=== PATIENT | female | born 1980 | race Caucasian/White ===

== ENCOUNTER 2020-06-20 07:59 | Outpatient (CLI) | payer OTHER, SELFPAY ==
--- NOTE | 2020-06-20 08:06 | MM_ITS ---
WS: [id number] Exam: [place] [id number] Date/Time of Exam: 06/20/2020 8:12 AM Reason For Exam: SCREENING VIEWS: MLO and CC views both breasts. Baseline study Findings: There was no sign of mass, architectural distortion or suspicious calcification in either breast. He terogeneously dense MM/[place] [id number] Impression: BI-RADS: 2-Benign FOLLOW-UP: 1 Year Follow-up This mammogram was also analyzed by the Computer Aided Detection System R2 Imag e Senior Engineering Team Leader.
== END 2020-06-20 08:00 | disposition home or self-care (01) ==
LOC: RADSHAW 08:02
PROVIDERS: PCP Registered Nurse; Visit Provider Obstetrics & Gynecology
DX: Z12.31 Encounter for screening mammogram for malignant neoplasm of breast (principal)
CPT/HCPCS: 77067

== ENCOUNTER → 2021-05-17 08:19 | Outpatient (BNVA) | payer OTHER, SELFPAY | PROVIDERS: PCP Registered Nurse; Visit Provider Obstetrics & Gynecology | DX: Z01.419 Encounter for gynecological examination (general) (routine) without abnormal findings (principal) | CPT/HCPCS: 87624 ==

== ENCOUNTER 2021-06-25 14:52 | Emergency (ER) | payer OTHER, SELFPAY ==
[2021-06-25 15:02] VITALS: BP 135/87; PULSE 89; RESP 16; TEMP 36.4; O2SAT 99; BMI 29.8
--- NOTE | 2021-06-25 15:05 | ECG_ITS ---
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 Measurements Intervals [place] Rate: 88 P: 48 UT: 143 QRS: 73 QRSD: 95 T: 53 QT: 381 QTc: 462 Interpretive Statements SINUS RHYTHM Compared to ECG 05/08/2018 11:38:25 Sinus tachycardia no longer present Electronically Signed On 06-26-2021 17:39:43 SALES AND LEASING AGENT by Marito Mcneill M.D. [email or web address].Nanoledgebolivar medical centerECOtwin city hospitalInfineta Systems/store/OM/[id number]
[2021-06-25 15:21] VITALS: BP 115/77; PULSE 88; RESP 19; TEMP 36.9; O2SAT 100
--- NOTE | 2021-06-25 15:21 | XR_ITS ---
WS: [id number] PORTABLE CHEST HISTORY: chest pain COMPARISON: 05/08/2018 Lungs are clear and well expanded. No pleural effusion or pneumothorax. Cardiac size: Normal. Mediastinum/Aorta: Normal mediastinum. No osseous abnormality seen. XR/XR chest 1V portable [id number] IMPRESSION: Unremarkable portable chest.
[2021-06-25 16:02] LABS: Basophils # 0.1 10^3/uL (0.0-0.1); Basophils % 1.1 %; Eosinophils # 0.2 10^3/uL (0.0-0.8); Eosinophils % 3.6 %; Hematocrit 36.8 % (37.0-47.0); Hemoglobin 12.3 g/dL (11.5-15.3); Lymphocytes # 1.6 10^3/uL (0.8-4.8); Lymphocytes % 24.4 %; Mean Corpuscular HGB Conc 33.4 g/dL (30.0-36.0); Mean Corpuscular Hemoglobin 30.4 pg (28.0-34.0); Mean Corpuscular Volume 91.1 fl (81-99); Mean Platelet Volume 9.5 fL (7.4-10.4); Monocytes # 0.5 10^3/uL (0.2-0.9); Monocytes % 7.5 %; Neutrophils # 4.08 10^3/uL (1.8-7.7); Neutrophils % 63.2 %; Nucleated Red Blood Cells % 0 %; Platelet Count 296 10^3/cmm (130-400); Red Blood Count 4.04 10^6/uL (4.1-5.3); Red Cell Distribution Width 12.5 % (12.1-15.1); White Blood Count 6.4 10^3/uL (4.0-10.0)
--- NOTE | 2021-06-25 16:03 | W.ED.GENADLT ---
HPI - General Adult General: Chief complaint: Chest Pain Stated complaint: SLIGHT CP/HIGH BP Time Seen by Provider: 06/25/21 15:15 History of Present Illness: HPI narrative: CC: Chest Pain HPI: This is a [40] yo patient hx of SVT s/p ablation 3 years ago presenting to the ED complaining of acute sudden onset intermittent pressure like pain WITHOUT radiation lasting for 2-5 minutes at a time. Patient has had 8 episodes of these chest pressures. Patient reported mild facial numbness without any radiated pain. No associated with shortness of breath, chest pain or dyspnea on exertion. Pain is not tearing in nature and does not radiate to the back. Pain not associated with vomiting or PO intake. Denies any recent sympathomimetic drug use. Patient denies any cough. Denies palpitations, dysphagia, diaphoresis, radiation of pain to bilateral arms, jaw. Denies F/N/V/D. Patient denies any recent immobility, surgery, unilateral leg swelling, or prior PE. Patient denies any orthopnea. Onset: earlier today Duration: ongoing for 4 hrs Location: home Severity: mild/moderate Review of Systems Narrative: Constitutional: No fever, no chills. HEENT: No vision changes, no sore throat. CV: +chest pain, no palpitations. PULM: No cough, No dyspnea. GI: No abdominal pain, no N/V/D. : No dysuria, no frequency, no hematuria. MSKEL: No arthralgias, no edema. SKIN: No new rashes, no lesions. NEURO: No headache, no focal weakness. HEME: No easy bleeding or bruising. PSYCH: No change in mood or affect. [facility] ED PFSH: Medical History Anxiety and depression Seasonal allergies SVT (supraventricular tachycardia) Treated by cardiac ablation - 07/2018 Surgical History History of cardiac radiofrequency ablation (RFA) (07/14/18) S/P LEEP Performed by Dr. Whitfield at [facility] [place], [place] Teller teeth removed (~1999) Family History (Updated 05/17/21 @ 07:55 by Evi Guzman LPN) Father Heart disease Family/Other Ovarian cancer great aunt Heart disease great uncle Grandfather Heart disease Grandmother Hypertension Brother Diabetes type 1 1/2 Denies family history of CAD (coronary artery disease) Clotting disorder Hyperlipidemia Chronic kidney disease (CKD) Bleeding disorder Thyroid disease Stroke Social History (Updated 05/17/21 @ 07:55 by Evi Guzman LPN) Smoking and tobacco status: never smoked Alcohol intake: current Alcohol intake frequency: few times a month Physical Exam Narrative: EXAM NARRATIVE: Head: Atraumatic, normocephalic Eyes: PERRL, EOMI, conjunctiva without injection ENT: Throat without erythema, lesions or exudate, MMM NECK: Supple, trachea midline, no JVD LUNGS: LCTA CV: RRR, S1,S2, no murmurs, rubs, gallops. 2+ peripheral pulses in UEs ABDOMEN: Soft, nontender, nondistended, BS x4, no rigidity, no guarding, no rebound EXTREMITY: Normal ROM, no pitting edema, no calf tenderness to palpation SKIN: No rash or erythema NEURO: Awake and alert. No focal motor deficits. PSYCH: Normal mood and affect. Course Vital Signs: Vital signs: Vital Signs Temperature 98.5 F 06/25/21 15:21 Pulse Rate 79 06/25/21 17:51 Respiratory Rate 20 H 06/25/21 17:51 Blood Pressure 96/72 06/25/21 17:51 Pulse Oximetry 100 06/25/21 17:51 MDM - General Adult MDM Narrative: Medical decision making narrative: [40]yo patient w/ hx of SVT from 3 years prior s/p ablation presenting to the ED with evaluation of new onset of chest pressure since earlier today. HDS, pulse 2+ radially bilaterally, no signs of fluid overload, AAOx3, neuro exam intact. Given History and Exam today I have no suspicion for ACS, Pneumothorax, Pneumonia, Pulmonary Embolus, Tamponade, Aortic Dissection or other emergent problems as a cause for this presentation. Workup: ECG, CXR, CBC, BMP, Troponin x2 Findings: ECG: No overt evidence of STEMI, hyperacute T waves, localizable STD or T wave inversions. No evidence of Brugada?s sign, delta wave, epsilon wave, significantly prolonged QTc, or malignant arrhythmia. No Q waves. Other Labs unremarkable for emergent problems. CXR: Without PTX, PNA, or widened mediastinum Last Stress Test: never Last Heart Catheterization: never HEART Score: 0 PERC: Negative [6:30pm] On reassessment, the patient is HDS, no complaints of persistent chest pain in the ED after evaluation. ECG is non-ischemic. Workup today is unremarkable. Doubt ACS/PE or other emergent causes of chest pain. I performed a shared decision-making with the patient regarding admission versus discharge given the nature of her chest pain. Although his workup is negative today, I explained to him that she may still have a cardiac event. At this time, patient elects to follow up with a bundler outpatient for further evaluation and prefers to be discharged today. I have discussed the risks of leaving the hospital today which include serious risks including acute myocardial infarction and even dxeath which is unlikely but cannot rule out. Patient verbalizes understandings of all the risks and still elect for outpatient stress test. We will arrange for an outpatient stress test for the patient. Rx: Tylenol PRN pain Disposition: Discharge. Strict return precautions discussed with the patient with full understanding. Advised patient to follow up promptly with a primary care provider in 24-48 hrs if the patient has persistent symptoms. Given return instructions for any crushing/tearing chest pain, focal weakness, syncope or any new or concerning issues. Lab Data: Labs: Lab Results 06/25/21 06/25/21 06/25/21 15:50 15:50 15:50 WBC 6.4 10^3/uL 10^3/ uL (4.0-10.0) RBC 4.04 10^6/uL L 10 ^6/uL (4.1-5.3) Hgb 12.3 g/dL g/dL (11.5-15.3) Hct 36.8 % L % (37.0-47.0) MCV 91.1 fl fl (81-99) MCH 30.4 pg pg (28.0-34.0) MCHC 33.4 g/dL g/dL (30.0-36.0) RDW 12.5 % % (12.1-15.1) Plt Count 296 10^3/cmm 10^3 /cmm (130-400) MPV 9.5 fL fL (7.4-10.4) Neut % (Auto) 63.2 % % Lymph % (Auto) 24.4 % % [place] % (Auto) 7.5 % % Eos % (Auto) 3.6 % % Baso % (Auto) 1.1 % % Neut # (Auto) 4.08 10^3/uL 10^3 /uL (1.8-7.7) Lymph # (Auto) 1.6 10^3/uL 10^3/ uL (0.8-4.8) [place] # (Auto) 0.5 10^3/uL 10^3/ uL (0.2-0.9) Eos # (Auto) 0.2 10^3/uL 10^3/ uL (0.0-0.8) Baso # (Auto) 0.1 10^3/uL 10^3/ uL (0.0-0.1) Nucleated RBC % (a uto) 0 % % Nucleated RBCs # 0.0 /100WBC /100W BC Sodium 142 mmol/L mmol/L (136-145) Potassium 3.5 mmol/L mmol/L (3.5-5.1) Chloride 103 mmol/L mmol/L (98-107) Carbon Dioxide 30 mmol/L H mmol/ L (22-29) Anion Gap 12.5 (5-19) BUN 11 mg/dL mg/dL (6-20) Creatinine 0.6 mg/dL mg/dL (0.5-0.9) GFR Calculation 110.2 mL/min mL/m in (90-130) Glucose 103 mg/dL mg/dL (65-115) Calculated Osmolal ity 294 mOsm/kg mOsm/ kg (285-295) Calcium 8.4 mg/dL L mg/dL (8.5-10.5) Troponin T Baselin e 6 ng/L ng/L (0-10) Troponin T 120 Min enterprise Delta Troponin T Ser , Liana i-Qnt 0.50 mIU/mL mIU/m L 06/25/21 17:32 WBC RBC Hgb Hct MCV MCH MCHC RDW Plt Count MPV Neut % (Auto) Lymph % (Auto) [place] % (Auto) Eos % (Auto) Baso % (Auto) Neut # (Auto) Lymph # (Auto) [place] # (Auto) Eos # (Auto) Baso # (Auto) Nucleated RBC % (a uto) Nucleated RBCs # Sodium Potassium Chloride Carbon Dioxide Anion Gap BUN Creatinine GFR Calculation Glucose Calculated Osmolal ity Calcium Troponin T Baselin e Troponin T 120 Min enterprise 6.00 ng/L ng/L (0-10) Delta Troponin T 0 ABS# ABS# (0-10) Ser , Liana i-Qnt Imaging Data^: Other Imaging: Radiologist's impression: [id number] [place], [place] [address]ODku ReportSigned Patient: Imani Steve #: [id number]: 1980Acct#:[id number]/Sex: 40 / FADM Date: 06/25/21Loc: ERRoom/Bed:Attending Dr: Ordering Provider/Ordering MD: Jacklyn Real MD Date of Service: 06/25/21 Procedure(s): XR chest 1V portable [id number] Accession Number(s): [id number] Report Number: [id number] WS: [id number] PORTABLE CHEST HISTORY: chest pain COMPARISON: 05/08/2018 Lungs are clear and well expanded. No pleural effusion or pneumothorax. Cardiac size: Normal. Mediastinum/Aorta: Normal mediastinum. No osseous abnormality seen. XR/XR chest 1V portable [id number] IMPRESSION: Unremarkable portable chest. Dictated By:Sugey Branham DOSigned By:Sugey Branham DOSigned Date/Time:06/25/21 1549DD/ 1543 Discharge Plan Discharge Patient Disposition: Home Clinical Impression: Chest pain Condition: Stable Prescriptions: New acetaminophen 500 mg tablet 500 mg PO Q6H PRN (Reason: pain) 5 Days Qty: 20 RF: 0 No Action escitalopram oxalate [Lexapro] 20 mg tablet 30 mg PO DAILY Qty: 45 RF: 12 Discharge Orders: Discharge ED (Routine); Ordered 06/25/21 Ordered By: Jacklyn Real Referrals: Victoriano Alba FNP [Primary Care Provider] - Discharge Diet: Advance as tolerated Discharge Activity: Resume usual activity Patient Instructions: Chest Pain (ED) Activity Restrictions/Additional Instructions: Come back to the emergency room if your chest pain worsens, have any fever or chills, worsening shortness of breath, worsening exertional lightheadedness, or any new or concerning complaints. We have arranged you for an outpatient stress test for your heart. Please await to be contacted for the stress test. Coding Level of Care Code ED Inspector Glass Or Mirror for Marylu Anne
[2021-06-25 16:13] VITALS: BP 90/62; PULSE 82; RESP 20; O2SAT 98
[2021-06-25 16:33] LABS: Troponin(5th) Baseline 6 ng/L (0-10)
[2021-06-25 16:43] LABS: Anion Gap 12.5 (5-19); Blood Urea Nitrogen 11 mg/dL (6-20); Calcium 8.4 mg/dL (8.5-10.5); Carbon Dioxide 30 mmol/L (22-29); Chloride 103 mmol/L (98-107); Glomerular Filtration Rate 110.2 mL/min (90-130); Glucose 103 mg/dL (65-115); Osmolality Calculated 294 mOsm/kg (285-295); Potassium 3.5 mmol/L (3.5-5.1); Sodium 142 mmol/L (136-145)
--- NOTE | 2021-06-25 17:21 | ECG_ITS ---
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 Measurements Intervals [place] Rate: 78 P: 62 NM: 175 QRS: 69 QRSD: 97 T: 48 QT: 399 QTc: 456 Interpretive Statements SINUS RHYTHM Compared to ECG 06/25/2021 15:13:31 No significant changes Electronically Signed On 06-26-2021 17:44:46 BANK OFFICER by Marito Mcneill M.D. [email or web address].Lectoratiperry county general hospitalLudic Labswood county hospital.[employer]/store/OM/[id number]
[2021-06-25 17:51] VITALS: BP 96/72; PULSE 79; RESP 20; O2SAT 100
[2021-06-25 18:07] LABS: Troponin 5 2HR Delta 0 ABS# (0-10)
[2021-06-25 18:26] VITALS: BP 97/68; PULSE 76; RESP 15; O2SAT 99
--- NOTE | 2021-06-26 12:01 | DCPLANNER ---
channel business manager had message to schedule an outpatient stress test for patient. channel business manager faxed signed order to centralized scheduling, who will call patient with appointment information.
--- NOTE | 2021-07-15 07:57 | DCPLANNER ---
Patient had an outpatient stress test scheduled - patient did attend.
== END 2021-06-25 18:28 | disposition home or self-care (01) ==
PROVIDERS: Emergency Provider Emergency Medicine; PCP Registered Nurse
DX: R07.9 Chest pain, unspecified (principal)
CPT/HCPCS: 71045; 80048; 84484; 84702; 85025; 93005; 99284

== ENCOUNTER 2021-07-15 07:19 | Outpatient (CLI) | payer OTHER, SELFPAY ==
[2021-07-15 07:38] VITALS: BMI 29.0
--- NOTE | 2021-07-15 07:38 | ECG_ITS ---
[facility] Test Date: 2021-07-15 Pat Name: Imani Steve Department: Room: Gender: Female Independent Freight Agent: Tamara Alejandra : 1980 Requested By: Jacklyn Real Order Number: [id number] Miguel Ángel MD: LUANN GALICIA Interpretive Statements NAME OF STUDY: LEXISCAN SESTAMIBI STRESS TEST INDICATION: Chest Pain, SEND RESULTS TO NELLIE ALVARENGA NOTE: Please note that this is the electrocardiogram portion of the Lexiscan/Sestamibi stress test. The perfusion scan will be documented separately. DATA: Baseline heart rate was 78 beats per minute. Baseline blood pressure was 89/58 millimeters of mercury. Target heart rate was 179. Maximum heart rate achieved was 115. which was 64 % of the predicted target heart rate. Maximum blood pressure was 110/62 millimeters of mercury. The reason for ending the test was completion of the protocol. The patient did not experience any symptoms. ELECTROCARDIOGRAM: BASELINE: Sinus rhythm. Normal axis. Otherwise, no ST-T changes suggestive of ischemia noted. No arrhythmia noted. EXERCISE: After Lexiscan injection, no ST-T changes suggestive of ischemic noted. No arrhythmia noted. CONCLUSION: Please note due to baseline abnormality of the EKG specificity and sensitivity of the EKG portion of LexiScan MIBI stress test will be low 1. EKG not suggestive of ischemia 2. Lexiscan injection unremarkable. 3. Perfusion scan will be documented separately. Electronically Signed On 07-23-2021 22:01:22 DUMPER BAILER OPERATOR by LUANN GALICIA [email or web address]/store/[id number]
--- NOTE | 2021-07-15 07:39 | NMCV_ITS ---
NM phil perf SPECT r/s* [id number] Imani Steve Age: 40 Gender: F : 1980 Exam Date: 07/15/2021 07:39 Ordering Phys: Jacklyn Real MD Technologist: TERESA Carr Exam Location: [facility] Indications: Chest pain STRESS TEST Please [facility] for [facility] IMAGE PROTOCOL Rest/Stress 1 Lexiscan Day Radiopharmaceutical Dose (mCi) Administration Site Administered by Rest: Tc-99m 10.8 IV TERESA Carr Sestamibi Stress:Tc-99m 32.4 IV TERESA Carr Sestamibi Rest: 15-Jul-2021 60 Discovery 630 Stress: 15-Jul-2021 45 Discovery 630 0.4mg Lexiscan. Images obtained in supine and prone position. SPECT RESULTS Technical Quality: Excellent Raw Data Analysis: Normal Image Corrections: No attenuation or motion correction applied Summed Stress Score: 0 Summed Rest Score: 0 Summed Difference Score: 0 PERFUSION FINDINGS SPECT images demonstrate homogeneous tracer distribution throughout the myocardium. FUNCTIONAL RESULTS (calculated via Gated SPECT) Stress Image LV EF (%): 60 Stress EDV (mL):73 TID: 1.16 Stress ESV (mL):29 Rest Image LV EF (%): 60 FUNCTIONAL FINDINGS: There is normal left ventricular systolic function. IMPRESSIONS Myocardial perfusion imaging is normal. TID ratio is elevated which could be secondary to left ventricular hypertrophy/subendocardial ischemia EKG segment will be documented separately. Lee Travis MD (Electronically Signed) Final Date: 15 July 2021 19:42 S
[2021-07-15] MEDS: regadenoson 0.4 Mg/5 ml Syringe IVP (09:14)
[2021-07-15 09:39] VITALS: BP 94/56; PULSE 96
== END 2021-07-15 07:20 | disposition home or self-care (01) ==
LOC: CDL 07:21
PROVIDERS: PCP Registered Nurse; Visit Provider Emergency Medicine
DX: R07.9 Chest pain, unspecified (principal); R06.02 Shortness of breath
CPT/HCPCS: 78452; 93017; A9500; J2785

== ENCOUNTER 2021-08-29 13:30 | Outpatient (CLI) | payer OTHER, SELFPAY ==
--- NOTE | 2021-08-29 13:39 | MM_ITS ---
WS: [id number] BILATERAL DIGITAL SCREENING MAMMOGRAPHY WITH CAD CLINICAL INFORMATION: SCREENING HISTORY: Screening mammogram. No current complaints. COMPARISON: June 20, 2020 TECHNIQUE: Bilateral CC and MLO views. FINDINGS: The breasts are composed of heterogeneous fibroglandular density tissue, which can limit the detectio n of small underlying mass lesions. Dense ovoid asymmetry upper outer left breast. Recommend spot com pression views and ultrasound for further evaluation. Right breast is unremarkable and unchanged. MM/[place] [id number] IMPRESSION: BI-RADS: 0-Incomplete: Need additional imaging evaluation FOLLOW UP: Need Additional Imaging RECOMMEND LEFT BREAST DIAGNOSTIC MAMMOGRAPHY AND ULTRASOUND.
== END 2021-08-29 13:31 | disposition home or self-care (01) ==
LOC: RADSHAW 13:36
PROVIDERS: PCP Registered Nurse; Visit Provider Obstetrics & Gynecology
DX: Z12.31 Encounter for screening mammogram for malignant neoplasm of breast (principal)
CPT/HCPCS: 77067

== ENCOUNTER 2021-09-02 14:45 | Outpatient (CLI) | payer OTHER, SELFPAY ==
--- NOTE | 2021-09-02 14:56 | US_ITS ---
WS: [email or web address] LEFT DIGITAL MAMMOGRAPHY WITH CAD CLINICAL INFORMATION: R92.8 - Other abnormal and inconclusive findings on diagn... COMPARISON: August 29, 2021 TECHNIQUE: 3 views of the left breast were obtained. FINDINGS: Scattered fibroglandular densities of the left breast. Previously described lesion upper outer quadra nt partially compresses out on the spot compression views but remains faintly visible. Ultrasound is pending. ULTRASOUND BREAST LEFT TECHNIQUE: Ultrasound left breast focused area of concern. CLINICAL INFORMATION: R92.8 - Other abnormal and inconclusive findings on diagn... FINDINGS: Ultrasound left breast at the 12 to 3:00 position. Hypoechoic lesion at the 12:00 position 2 cm from the nipple measuring 7.6 x 4.3 x 2.1 mm is indeterminant. Surrounding band of dense parenchymal tissu e. Recommend further evaluation with ultrasound-guided biopsy. Additional smaller ovoid hypoechoic lesions at the 1:00 position areola measuring 3.4 x 3.0 x 3.5 mm and 1:00 position 1 cm from the nipple measuring 5.6 x 3.4 x 6.3 mm. These are probably benign and re commend 6 month follow-up. US/US breast LT limited* [id number] IMPRESSION: BI-RADS: 4-Suspicious Finding-Biopsy Should Be Considered FOLLOW UP: US Guided Biopsy Recommended RECOMMEND ULTRASOUND-GUIDED BIOPSY OF THE HYPOECHOIC LESION AT THE 12:00 POSITI ON Recommend 6 month ultrasound follow-up of the 2 smaller hypoechoic lesions at t he 1:00 position
--- NOTE | 2021-09-02 15:00 | MM_ITS ---
WS: [email or web address] LEFT DIGITAL MAMMOGRAPHY WITH CAD CLINICAL INFORMATION: R92.8 - Other abnormal and inconclusive findings on diagn... COMPARISON: August 29, 2021 TECHNIQUE: 3 views of the left breast were obtained. FINDINGS: Scattered fibroglandular densities of the left breast. Previously described lesion upper outer quadra nt partially compresses out on the spot compression views but remains faintly visible. Ultrasound is pending. ULTRASOUND BREAST LEFT TECHNIQUE: Ultrasound left breast focused area of concern. CLINICAL INFORMATION: R92.8 - Other abnormal and inconclusive findings on diagn... FINDINGS: Ultrasound left breast at the 12 to 3:00 position. Hypoechoic lesion at the 12:00 position 2 cm from the nipple measuring 7.6 x 4.3 x 2.1 mm is indeterminant. Surrounding band of dense parenchymal tissu e. Recommend further evaluation with ultrasound-guided biopsy. Additional smaller ovoid hypoechoic lesions at the 1:00 position areola measuring 3.4 x 3.0 x 3.5 mm and 1:00 position 1 cm from the nipple measuring 5.6 x 3.4 x 6.3 mm. These are probably benign and re commend 6 month follow-up. MM/[place] [id number] IMPRESSION: BI-RADS: 4-Suspicious Finding-Biopsy Should Be Considered FOLLOW UP: US Guided Biopsy Recommended RECOMMEND ULTRASOUND-GUIDED BIOPSY OF THE HYPOECHOIC LESION AT THE 12:00 POSITI ON Recommend 6 month ultrasound follow-up of the 2 smaller hypoechoic lesions at t he 1:00 position
== END 2021-09-02 14:46 | disposition home or self-care (01) ==
LOC: RADSHAW 14:48
PROVIDERS: PCP Registered Nurse; Visit Provider Obstetrics & Gynecology
DX: R92.8 Other abnormal and inconclusive findings on diagnostic imaging of breast (principal); N63.25 Unspecified lump in the left breast, overlapping quadrants
CPT/HCPCS: 76642; 77065

== ENCOUNTER 2021-09-17 10:52 | Outpatient (CLI) | payer OTHER, SELFPAY ==
--- NOTE | 2021-09-17 11:30 | US_ITS ---
WS: [email or web address] ULTRASOUND-GUIDED LEFT BREAST BIOPSY HISTORY: Indeterminate hypoechoic mass LEFT breast at 12:00. Biopsy recommended. COMPARISON: 09/02/2021 and 08/29/2021 Procedure, risks and complications are explained to the patient. Medications are reviewed. Consent is obtained. The mass in the LEFT breast is localized with ultrasound. Mass localizes to 12:00. Skin is cleansed w ith ChloraPrep and anesthetized with 1% buffered lidocaine. Small dermatome is made. Under sterile co nditions mass is biopsied with a 14-gauge Achieve needle. Multiple core biopsies are performed. Mater ial placed in formalin and sent to pathology for review. No complications encountered. Breast tissue marker (Bard ultrasound enhanced ribbon): Single. Patient left the radiology suite with no complications. Patient is instructed [place] [facility] [place] [facility] with any concerns. US/[place] [id number] IMPRESSION: 1. Uncomplicated core needle biopsy LEFT breast mass at 12:00. PATHOLOGY: Fibroadenoma. RECOMMENDATION: Return to annual screening mammography. Imaging and pathology findings are concordant.
== END 2021-09-17 10:53 | disposition home or self-care (01) ==
LOC: RAD 10:56
PROVIDERS: PCP Registered Nurse; Visit Provider Surgery
DX: N63.25 Unspecified lump in the left breast, overlapping quadrants (principal); D24.2 Benign neoplasm of left breast
CPT/HCPCS: 19083; 88305

== ENCOUNTER 2022-03-10 07:42 | Outpatient (CLI) | payer OTHER, SELFPAY ==
--- NOTE | 2022-03-10 07:48 | MM_ITS ---
WS: [email or web address] DIAGNOSTIC LEFT DIGITAL BREAST TOMOSYNTHESIS MAMMOGRAPHY WITH CAD. LEFT breast ultrasound, limited HISTORY: Follow-up hypoechoic lesions at 1:00. Previously biopsied adenoma 12:00. COMPARISON: 09/02/2021, 08/29/2021 and 06/20/2020 Technique: CC, MLO and ML views. Spot compression LEFT CC and MLO. Breast composition: There are scattered areas of fibroglandular density. Prior biopsy clip at 12:00. No change in the fibroglandular densities. No distortion. No calcifications. LEFT breast ultrasound, limited. LEFT breast previously biopsied fibroadenoma at 12:00 is unchanged. Hypoechoic nodules at 1:00 adjace nt to the areolar are also unchanged. Hypoechoic nodule subareolar 1:00 measures 5 x 3 mm and at 1:00 , 1 cm from the nipple 6 x 4 mm. MM/[place] [id number] IMPRESSION: BI-RADS: 2-Benign FOLLOW UP: 6 Month Follow-up Patient to return to annual screening mammography. Screening should be performe d in August 2022.
== END 2022-03-10 07:43 | disposition home or self-care (01) ==
PROVIDERS: PCP Registered Nurse; Visit Provider Surgery
DX: R92.8 Other abnormal and inconclusive findings on diagnostic imaging of breast (principal)
CPT/HCPCS: 76642; 77061

== ENCOUNTER → 2022-07-02 16:56 | Outpatient (BNVA) | payer OTHER, SELFPAY | PROVIDERS: PCP Family Medicine; Visit Provider Family Medicine | DX: I47.1 Supraventricular tachycardia (principal); G47.00 Insomnia, unspecified | CPT/HCPCS: 80053; 84443 ==

== ENCOUNTER 2022-10-17 07:39 | Outpatient (CLI) | payer OTHER, SELFPAY ==
--- NOTE | 2022-10-17 07:55 | MM_ITS ---
WS: [email or web address] BILATERAL SCREENING DIGITAL TOMOSYNTHESIS MAMMOGRAM WITH CAD HISTORY: SCREEN COMPARISON: 03/10/2022, 08/29/2021, 06/20/2020 Bilateral CC and MLO views with tomosynthesis and synthetic mammography submitted. Computer aided det ection analyzed. Breast composition: The breasts are heterogeneously dense, which may obscure small masses. No suspici ous masses, microcalcifications or architectural distortion. Biopsy clip 12:00 LEFT breast. No interv al change. MM/[place] [id number] IMPRESSION: BI-RADS: 2-Benign FOLLOW UP: 1 Year Follow-up
== END 2022-10-17 07:40 | disposition home or self-care (01) ==
LOC: RAD 07:40
PROVIDERS: PCP Registered Nurse; Visit Provider Obstetrics & Gynecology
DX: Z12.31 Encounter for screening mammogram for malignant neoplasm of breast (principal)
CPT/HCPCS: 77063; 77067

== ENCOUNTER 2023-11-26 07:45 | Outpatient (CLI) | payer OTHER, SELFPAY ==
--- NOTE | 2023-11-26 07:50 | MM_ITS ---
WS: [email or web address] BILATERAL SCREENING DIGITAL TOMOSYNTHESIS MAMMOGRAM WITH CAD HISTORY: SCREENING COMPARISON: 10/17/2022, 03/10/2022 Bilateral CC and MLO views with tomosynthesis and synthetic mammography submitted. Computer aided det ection analyzed. Breast composition: The breasts are heterogeneously dense, which may obscure small masses. No suspici ous masses, microcalcifications or architectural distortion. Biopsy clip 12:00. No associated mass. IMPRESSION: MM/[place] [id number] BI-RADS: 2-Benign FOLLOW UP: 1 Year Follow-up
== END 2023-11-26 07:46 | disposition home or self-care (01) ==
LOC: RAD 07:45
PROVIDERS: PCP Registered Nurse; Visit Provider Nurse Practitioner Women's Health
DX: Z12.31 Encounter for screening mammogram for malignant neoplasm of breast (principal)
CPT/HCPCS: 77063; 77067

== ENCOUNTER 2024-03-25 14:07 | Emergency (ER) | payer OTHER, SELFPAY ==
[2024-03-25 14:47] VITALS: BP 109/75; PULSE 87; RESP 14; TEMP 36.9; O2SAT 97
--- NOTE | 2024-03-25 15:09 | W.ED.ANIMALB ---
HPI - Animal Bite General: Chief Complaint: Animal Bite Stated Complaint: Dog Bite Time Seen by Provider: 03/25/24 15:08 Source: patient Mode of arrival: ambulatory Limitations: no limitations History of Present Illness: Patient is a 43-year-old female presents to ED today with complaint of a dog bite to her left hand. She states she was fixing the portion of her fence that the neighbors dogs had got under when the dog ran to the fence and bit her left hand. Last tetanus is unknown. She states dog's immunization status is unknown. MD complaint: animal bite Onset (ago): hour(s) Animal: dog Description of animal: immunizations unknown and appeared well Mechanism: bite Location - Extremities: Left: hand Associated symptoms: Reports no associated symptoms Related Data Home Medications Medication Instructions Recorded Confirmed ibuprofen 200 mg tablet 200 mg PO Q6H PRN 12/22/22 08/21/23 melatonin 10 mg capsule 10 mg PO DAILY 07/02/23 08/21/23 Previous Rx's Medication Instructions Recorded escitalopram oxalate 20 mg tablet 30 mg (1.5 x 20 mg) PO DAILY #45 10/01/23 (Lexapro) tabs progesterone micronized 100 mg 100 mg PO .bedtime #90 caps 01/26/24 capsule amoxicillin 875 mg-potassium 1 tab PO BID #14 tabs 03/25/24 clavulanate 125 mg tablet hydrocodone 5 mg-acetaminophen 325 1 tab PO Q6H PRN pain #14 tabs 03/25/24 mg tablet Allergies Allergy/AdvReac Type Severity Reaction Status Date / Time No Known Allergies Allergy Verified 03/25/24 14:51 Review of Systems Musc: Reports: extremity pain (L hand) Skin/Breast: Reports: other (dog bite L hand) Neuro: Denies: numbness in extremities or sensory changes [facility] ED PFSH: Medical History Seasonal allergies SVT (supraventricular tachycardia) Treated by cardiac ablation - 07/2018 Anxiety and depression Surgical History [place] teeth removed (~2000) S/P LEEP Performed by Dr. Whitfield at [facility] in [place], [place] History of cardiac radiofrequency ablation (RFA) (07/14/18) Performed by Dr. Dallas. Followed by Julio César and Dr. Rader. Family History Father Heart disease Family/Other Ovarian cancer great aunt Heart disease great uncle Grandfather Heart disease Grandmother Hypertension Brother Diabetes type 1 1/2 Female Reproductive History: Date of last menstrual period: 03/22/24 Spontaneous abortions: No Physical Exam Const: COMMON NORMALS: no acute distress, average body habitus, patient oriented x3, no limitations, healthy appearing, alert and well nourished Extremity: COMMON NORMALS: capillary refill normal LEFT UPPER EXTREMITY: Yes hand & digits (dog bites dorsal ulnar L hand) Left hand and digits: Yes neurovascular exam (normal) Neuro: COMMON NORMALS: patient oriented x3, moves all extremities, no focal motor deficits and no sensory deficits noted SENSORIUM/ORIENTATION: Yes alert Skin: NARRATIVE SKIN EXAM: see above Course Vital Signs: Vital signs: Vital Signs Temperature 98.4 F 03/25/24 14:47 Pulse Rate 87 03/25/24 14:47 Respiratory Rate 14 03/25/24 14:47 Blood Pressure 109/75 03/25/24 14:47 Pulse Oximetry 97 03/25/24 14:47 MDM - Animal Bite Medical Decision Making Dog bites are superficial and non-gaping thus were left open. She will be placed on Augmentin. Tetanus updated. She will be given pain medications. She was started on rabies PEP. Return precautions given. XR was negative XR interpretation done by ED provider, pending radiology final review ED provider radiology interpretation(s): XR interpretation done by ED provider, pending radiology final review ED provider radiology interpretation(s): Negative for fracture or foreign bodies Discharge Plan Discharge Patient Disposition: Home Clinical Impression: Dog bite of left hand Qualifiers: Encounter type: initial encounter Qualified Code(s): S61.452A - Open bite of left hand, initial encounter Condition: Stable Prescriptions: New amoxicillin-pot clavulanate 875-125 mg tablet 1 tab PO BID Qty: 14 0RF hydrocodone-acetaminophen 5-325 mg tablet 1 tab PO Q6H PRN (Reason: pain) Qty: 14 0RF No Action melatonin 10 mg capsule 10 mg PO DAILY ibuprofen 200 mg tablet 200 mg PO Q6H PRN escitalopram oxalate [Lexapro] 20 mg tablet 30 mg PO DAILY Qty: 45 12RF progesterone micronized 100 mg capsule 100 mg PO .bedtime Qty: 90 3RF Discharge Orders: Discharge ED (Routine); Ordered 03/25/24 Ordered By: Joselyn Mccurdy Referrals: Victoriano Alba FNP [Primary Care Provider] - Patient Instructions: Rabies Vaccine (By injection), Rabies Immune Globulin (By injection), Animal Bite (ED) Activity Restrictions/Additional Instructions: Fill your antibiotics and start them immediately. Monitor for signs of infection such as redness, swelling, worsening pain, discharge, red streaking up your hand or arm, fevers, or for any other concerns you may have. Please seek medical re-evaluation if these occur. You should have been set up with a schedule for the remainder of your rabies postexposure prophylaxis series to be completed through our infusion center. Coding Level of Care Code ED Sole Stapler Welt for Marylu Anne
--- NOTE | 2024-03-25 15:14 | XRR_ITS ---
PROCEDURE INFORMATION: Exam: XR Left Hand Exam date and time: 03/25/2024 3:29 PM Age: 43 years old Clinical indication: Injury or trauma; Other: Dog bite; Hand; Left TECHNIQUE: Imaging protocol: Radiologic exam of the left hand. Views: 3 or more views. COMPARISON: No relevant prior studies available. FINDINGS: Bones/joints: Normal. No fracture or dislocation. Soft tissues: Normal. No radiopaque foreign body or gas in the soft tissues. XR/XR hand LT min 3V* [id number] IMPRESSION: No acute findings.
[2024-03-25] MEDS: ondansetron 2 mg/ML SDV 2 mL 4 MG IM (15:57)
[2024-03-25] MEDS: morphine 4 mg/mL SDV 1 mL IM (15:57)
[2024-03-25] MEDS: tetanus-dipt-pertussis 0.5 mL SDV IM (15:58)
[2024-03-25] MEDS: rabies IG 300 unit/mL SDV 1 mL 1410 UNIT IM (16:20)
[2024-03-25] MEDS: rabies vaccine 2.5 unit SDV IM (16:21)
[2024-03-25 16:35] VITALS: BP 99/67; PULSE 83; RESP 16; O2SAT 96
== END 2024-03-25 16:36 | disposition home or self-care (01) ==
PROVIDERS: Emergency Provider Physician Assistant; PCP Registered Nurse
DX: S61.452A Open bite of left hand, initial encounter (principal); W54.0XXA Bitten by dog, initial encounter; Z20.3 Contact with and (suspected) exposure to rabies; Z29.14 Encounter for prophylactic rabies immune globulin; Z23 Encounter for immunization
CPT/HCPCS: 73130; 90375; 90471; 90675; 90715; 96372; 99284; J2270; J2405

== ENCOUNTER 2024-04-01 10:00 | Oncology outpatient (recurring) (ONCR) | payer OTHER, SELFPAY ==
[2024-03-28 14:34] VITALS: BP 102/71; PULSE 78; RESP 16; TEMP 36.6; O2SAT 98
[2024-03-28] MEDS: rabies vaccine 2.5 unit SDV IM (14:37)
[2024-04-01 08:56] VITALS: BP 102/61; PULSE 83; RESP 16; TEMP 36.8; O2SAT 97
[2024-04-01] MEDS: rabies vaccine 2.5 unit SDV IM (09:00)
== END 2024-04-02 23:59 | disposition home or self-care (01) ==
PROVIDERS: PCP Registered Nurse; Visit Provider Internal Medicine Medical Oncology
DX: Z53.9 Procedure and treatment not carried out, unspecified reason (principal); Z29.14 Encounter for prophylactic rabies immune globulin
CPT/HCPCS: 90471; 90675

== ENCOUNTER 2024-04-08 10:39 | Oncology outpatient (recurring) (ONCR) | payer SELFPAY ==
[2024-04-08 10:57] VITALS: BP 90/62; PULSE 86; RESP 16; TEMP 37.3; O2SAT 95
[2024-04-08] MEDS: rabies vaccine 2.5 unit SDV IM (11:01)
== END 2024-05-02 23:59 | disposition home or self-care (01) ==
PROVIDERS: PCP Registered Nurse; Visit Provider Internal Medicine Medical Oncology
DX: Z20.3 Contact with and (suspected) exposure to rabies (principal); Z23 Encounter for immunization; S61.452A Open bite of left hand, initial encounter; W54.0XXA Bitten by dog, initial encounter
CPT/HCPCS: 90471; 90675

== ENCOUNTER → 2024-09-23 12:28 | Outpatient (BNVA) | payer OTHER, SELFPAY | PROVIDERS: PCP Registered Nurse; Visit Provider Family Medicine | DX: J02.9 Acute pharyngitis, unspecified (principal) | CPT/HCPCS: 87071; 87400; 87880 ==

== ENCOUNTER 2025-03-06 08:17 | Outpatient (CLI) | payer OTHER, SELFPAY ==
[2025-03-06 10:14] LABS: Hematocrit 36.0 % (36-47); Hemoglobin 11.80 g/dL (11.27-16.99); Mean Corpuscular HGB Conc 32.8 g/dL (30-55); Mean Corpuscular Hemoglobin 30.0 pg (27-33); Mean Corpuscular Volume 91.6 fl (85-98); Nucleated Red Blood Cells % 0 %; Platelet Count 263 10^3/cmm (157-399); Red Blood Count 3.93 10^6/uL (3.85-5.65); White Blood Count 5.01 10^3/uL (3.29-11.43)
[2025-03-06 10:30] LABS: Estmated Average Glucose 100; Hemoglobin A1C 5.1 % (4.0-6.0)
[2025-03-06 10:59] LABS: Alanine Aminotransferase 15 U/L (0-33); Albumin Level 4.3 g/dL (3.5-5.2); Alkaline Phosphatase 43 U/L (35-105); Anion Gap 13.2 (5-19); Aspartate Amino Transferase 23 U/L (0-32); Blood Urea Nitrogen 10 mg/dL (6-20); Calcium 8.6 mg/dL (8.5-10.5); Carbon Dioxide 26 mmol/L (22-29); Chloride 107 mmol/L (98-107); Cholesterol 134 mg/dL (0-200); Ferritin 33 ng/mL (15-150); Globulin 2.8 g/dL (1.3-4.6); Glucose 88 mg/dL (65-115); HDL Cholesterol 60 mg/dL (60-100); Iron 74 ug/dL (37-145); Osmolality Calculated 292 mOsm/kg (285-295); Potassium 4.2 mmol/L (3.5-5.1); Sodium 142 mmol/L (136-145); Thyroid Stimulating Hormone 2.38 uIU/mL (0.27-4.20); Total Protein 7.1 g/dL (6.6-8.7); Triglycerides 42 mg/dL (0-150); Vitamin B12 725 pg/mL (232-1245)
[2025-03-06 11:24] LABS: Free T4 Free Thyroxine 1.01 ng/dL (0.82-1.77)
== END 2025-03-06 08:18 | disposition home or self-care (01) ==
PROVIDERS: Nurse Practitioner Women's Health; PCP Registered Nurse; Visit Provider Registered Nurse
DX: R41.89 Other symptoms and signs involving cognitive functions and awareness (principal); N91.5 Oligomenorrhea, unspecified; R68.89 Other general symptoms and signs; Z13.1 Encounter for screening for diabetes mellitus; Z13.220 Encounter for screening for lipoid disorders; R53.83 Other fatigue
CPT/HCPCS: 36415; 80053; 80061; 82306; 82607; 82728; 82746; 83036; 83525; 83540; 84439; 84443; 85025

== ENCOUNTER 2025-03-13 07:44 | Outpatient (CLI) | payer OTHER, SELFPAY ==
--- NOTE | 2025-03-13 08:00 | MM_ITS ---
WS: [id number] BILATERAL SCREENING DIGITAL TOMOSYNTHESIS MAMMOGRAM WITH CAD HISTORY: Z12.31 - Encounter for screening mammogram for malignant ... COMPARISON: 11/26/2023, 10/17/2022 Bilateral CC and MLO views with tomosynthesis and synthetic mammography submitted. Computer aided detection analyzed. Breast composition: The breasts are heterogeneously dense, which may obscure small masses. No suspicious masses, microcalcifications or architectural distortion. Asymmetries are stable. There is a prior biopsy clip 12:00 posterior LEFT breast. No surrounding mass. MM/MM scr tomosynthesis [id number] IMPRESSION: BI-RADS: 2 - Benign FOLLOW UP: 1 Year Follow-up
== END 2025-03-13 07:45 | disposition home or self-care (01) ==
LOC: RAD 07:45
PROVIDERS: PCP Nurse Practitioner Adult Health; Visit Provider Nurse Practitioner Women's Health
DX: Z12.31 Encounter for screening mammogram for malignant neoplasm of breast (principal); R92.323 Mammographic fibroglandular density, bilateral breasts; Z97.8 Presence of other specified devices
CPT/HCPCS: 77063; 77067